=== PATIENT | male | born 1990 | race Caucasian/White ===

== ENCOUNTER 2021-11-01 05:36 | Emergency (ER) | payer SELFPAY ==
[2021-11-01 05:47] VITALS: BP 123/69; PULSE 86; RESP 18; TEMP 36.7; O2SAT 95; BMI 23.3
[2021-11-01 06:22] LABS: Add Urine Microscopic? NO; Charge for UA Resulting for Rev
[2021-11-01 06:24] LABS: Basophils % 0.2 %; Eosinophils # 0.2 10^3/uL (0.0-0.8); Eosinophils % 1.7 %; Hematocrit 47.4 % (42.0-52.0); Hemoglobin 15.5 g/dL (11.7-16.6); Lymphocytes # 1.9 10^3/uL (0.8-4.8); Lymphocytes % 20.9 %; Mean Corpuscular HGB Conc 32.7 g/dL (30.0-36.0); Mean Corpuscular Hemoglobin 29.9 pg (28.0-34.0); Mean Corpuscular Volume 91.5 fl (80-94); Mean Platelet Volume 10.3 fL (7.4-10.4); Monocytes # 1.2 10^3/uL (0.2-0.9); Monocytes % 13.1 %; Neutrophils # 5.85 10^3/uL (1.8-7.7); Neutrophils % 63.9 %; Nucleated Red Blood Cells % 0 %; Platelet Count 156 10^3/cmm (130-400); Red Blood Count 5.18 10^6/uL (4.1-5.3); Red Cell Distribution Width 12.9 % (12.1-15.1); White Blood Count 9.2 10^3/uL (4.0-10.0)
--- NOTE | 2021-11-01 06:26 | W.ED.WEAKNES ---
HPI - Weakness General: Chief complaint: Weakness Stated complaint: feels weak Time Seen by Provider: 11/01/21 05:54 Source: patient Mode of arrival: ambulatory Limitations: no limitations History of Present Illness: 31-year-old male who presents to the emergency room with complaint of generalized weakness. He works outside and has been sleeping in his car. He denies any abdominal or chest pain denies any shortness of breath he does have a little bit of dysuria. No vomiting or diarrhea no other focal symptoms other than being very tired and feeling weak. MD Complaint: generalized weakness Onset (ago): day(s) Duration: constant Location: generalized Migration: none Severity: mild Relieving factors: none Exacerbating factors: none Associated symptoms: Denies chest pain, chills, confusion, melena, decreased appetite, diaphoresis, dysuria, easy bruising, fever(s), headache(s), myalgias, nausea, rash, short of breath, syncope or vomiting Review of Systems Const: Reports: fatigue and malaise; Denies: fever(s), chills, body aches, change in appetite or diaphoresis ENMT: Denies: throat pain, ear or mastoid pain, nasal discharge or nasal congestion Card: Denies: chest pain or syncope Resp: Denies: dyspnea, productive cough or non-productive cough GI: Denies: nausea, vomiting or melena : Denies: flank pain, difficulty urinating, dysuria, urinary frequency or urinary urgency Skin/Breast: Denies: rash or pruritus Neuro: Denies: headache(s) or confusion Jacob/Lymph: Denies: easy bruising PFSH ED PFSH: Medical History (Updated 11/01/21 @ 06:47 by Jb Calloway DO) No pertinent past medical history Surgical History (Updated 11/01/21 @ 06:41 by Jb Calloway DO) No pertinent past surgical history Social History (Updated 11/01/21 @ 06:41 by Jb Calloway DO) Smoking and tobacco status: current every day smoker Alcohol intake: current Physical Exam Const: COMMON NORMALS: no acute distress GENERAL APPEARANCE: cooperative and comfortable ORIENTATION/CONSCIOUSNESS: Yes awake, Yes oriented to person, Yes oriented to place and Yes oriented to time HENMT: COMMON NORMALS: normocephalic and atraumatic HEAD & SCALP: normocephalic and atraumatic Eye: COMMON NORMALS: Equal, round and reactive pupils present, EOMs intact bilaterally, conjunctivae normal and no scleral icterus CONJUNCTIVA: Yes conjunctivae normal PUPIL: Yes Equal, round and reactive pupils present Neck/C-Spine: COMMON NORMALS: full ROM, no lymphadenopathy, supple and no JVD Resp: COMMON NORMALS: normal respiratory effort, No retractions, No use of accessory muscles and clear to auscultation bilaterally AUSCULTATION: clear to auscultation bilaterally Cardio: COMMON NORMALS: no JVD, regular rate, regular rhythm and No murmurs present (Cardio) RATE: regular rate RHYTHM: regular rhythm GI: COMMON NORMALS: Soft to palpation and No hepatosplenomegaly present AUSCULTATION: Yes normoactive bowel sounds PALPATION: Yes Soft to palpation, No Tenderness to palpation present (GI), No Guarding due to palpation present (GI) and Yes No hepatosplenomegaly present : COMMON NORMALS: Yes no CVA tenderness BLADDER/KIDNEY EXAM: Yes no CVA tenderness Back/Pelvis: COMMON NORMALS: no CVA tenderness Extremity: COMMON NORMALS: normal to inspection, capillary refill normal, no clubbing, cyanosis or edema, no calf tenderness and no pedal edema Neuro: SENSORIUM/ORIENTATION: Yes oriented to person, Yes oriented to place and Yes oriented to time Skin: COMMON NORMALS: no rashes or lesions noted GENERAL SKIN EXAM: no rashes or lesions noted Course Vital Signs: Vital signs: Vital Signs Temperature 98.1 F 11/01/21 05:47 Pulse Rate 86 11/01/21 05:47 Respiratory Rate 16 11/01/21 06:54 Blood Pressure 123/69 11/01/21 05:47 Pulse Oximetry 95 11/01/21 05:47 MDM - Weakness Medical Decision Making Reviewed labs and vital signs. No acute findings on laboratory studies vital signs are stable at this point beyond fatigue patient does not have any specific complaints no acute medical problem. I think a lot of his symptoms are due to the fact that he is working in the heat and in living out of his vehicle. He is not likely to be getting adequate sleep fluid intake and nutrition are also likely less than optimal. Discussed with the patient. While he does have many things that are probably contributing to his fatigue there is not anything medically that we can do most of these are social economic issues he acknowledges this. Discharge home. Lab Data I reviewed the patient's lab results. : 11/01/21 06:20 11/01/21 06:20 Laboratory Results WBC 9.2 10^3/uL (4.0-10.0) 11/01/21 06:20 RBC 5.18 10^6/uL (4.1-5.3) 11/01/21 06:20 Hgb 15.5 g/dL (11.7-16.6) 11/01/21 06:20 Hct 47.4 % (42.0-52.0) 11/01/21 06:20 MCV 91.5 fl (80-94) 11/01/21 06:20 MCH 29.9 pg (28.0-34.0) 11/01/21 06:20 MCHC 32.7 g/dL (30.0-36.0) 11/01/21 06:20 RDW 12.9 % (12.1-15.1) 11/01/21 06:20 Plt Count 156 10^3/cmm (130-400) 11/01/21 06:20 MPV 10.3 fL (7.4-10.4) 11/01/21 06:20 Neut % (Auto) 63.9 % 11/01/21 06:20 Lymph % (Auto) 20.9 % 11/01/21 06:20 [place] % (Auto) 13.1 % 11/01/21 06:20 Eos % (Auto) 1.7 % 11/01/21 06:20 Baso % (Auto) 0.2 % 11/01/21 06:20 Neut # (Auto) 5.85 10^3/uL (1.8-7.7) 11/01/21 06:20 Lymph # (Auto) 1.9 10^3/uL (0.8-4.8) 11/01/21 06:20 [place] # (Auto) 1.2 10^3/uL (0.2-0.9) H 11/01/21 06:20 Eos # (Auto) 0.2 10^3/uL (0.0-0.8) 11/01/21 06:20 Baso # (Auto) 0.0 10^3/uL (0.0-0.1) 11/01/21 06:20 Nucleated RBC % (auto) 0 % 11/01/21 06:20 Nucleated RBCs # 0.0 /100WBC 11/01/21 06:20 Sodium 140 mmol/L (136-145) 11/01/21 06:20 Potassium 4.0 mmol/L (3.5-5.1) 11/01/21 06:20 Chloride 105 mmol/L (98-107) 11/01/21 06:20 Carbon Dioxide 26 mmol/L (22-29) 11/01/21 06:20 Anion Gap 13.0 (5-19) 11/01/21 06:20 BUN 11 mg/dL (6-20) 11/01/21 06:20 Creatinine 0.8 mg/dL (0.7-1.2) 11/01/21 06:20 GFR Calculation 112.8 mL/min (90-130) 11/01/21 06:20 Glucose 95 mg/dL (65-115) 11/01/21 06:20 Calculated Osmolality 289 mOsm/kg (285-295) 11/01/21 06:20 Calcium 9.2 mg/dL (8.5-10.5) 11/01/21 06:20 Total Bilirubin 0.2 mg/dL (0.15-1.2) 11/01/21 06:20 AST 12 U/L (0-40) 11/01/21 06:20 ALT 15 U/L (0-41) 11/01/21 06:20 Alkaline Phosphatase 69 IU/L (40-130) 11/01/21 06:20 Total Protein 6.7 g/dL (6.6-8.7) 11/01/21 06:20 Albumin 4.1 g/dL (3.5-5.2) 11/01/21 06:20 Globulin 2.6 g/dL (1.3-4.6) 11/01/21 06:20 Urine Color Yellow (Yellow) 11/01/21 06:10 Urine Appearance Clear (CLEAR) 11/01/21 06:10 Urine pH 6.5 (5-7) 11/01/21 06:10 Ur Specific [place] 1.020 (1.005-1.030) 11/01/21 06:10 Urine Protein Neg (Negative) 11/01/21 06:10 Urine Glucose (UA) Norm (Normal) 11/01/21 06:10 Urine Ketones Negative (Negative) 11/01/21 06:10 Urine Blood Neg (Negative) 11/01/21 06:10 Urine Nitrate Negative (Negative) 11/01/21 06:10 Urine Bilirubin Neg (Negative) 11/01/21 06:10 Urine Urobilinogen 4 mg/dL (Negative) H 11/01/21 06:10 Ur Leukocyte Esterase Negative (Negative) 11/01/21 06:10 Discharge Plan Discharge Patient Disposition: Home Clinical Impression: Fatigue Condition: Stable Discharge Orders: Discharge ED (Routine); Ordered 11/01/21 Ordered By: Jb Calloway Referrals: Luis Eduardo Davenport, PARAPROFESSIONAL AIDE TEACHER-C [Primary Care Provider] - Patient Instructions: Opioid Safety Activity Restrictions/Additional Instructions: Follow-up with your primary care doctor. Stand Alone Forms: Work/School Release Coding Level of Care Code ED Jailer/Training Officer for Amy Fwd Exam Comprehensive
[2021-11-01 06:29] LABS: Bilirubin Urine Neg (Negative); Blood Urine Neg (Negative); Glucose Urine UA Norm (Normal); Ketones Urine Negative (Negative); Leukocyte Esterase Urine Negative (Negative); Nitrate Urine Negative (Negative); Protein Urine Neg (Negative); Urine Appearance Clear (CLEAR); Urine Color Yellow (Yellow); Urobilinogen Urine 4 mg/dL (Negative); pH Urine 6.5 (5-7)
[2021-11-01 06:42] LABS: Alanine Aminotransferase 15 U/L (0-41); Albumin Level 4.1 g/dL (3.5-5.2); Alkaline Phosphatase 69 IU/L (40-130); Aspartate Amino Transferase 12 U/L (0-40); Blood Urea Nitrogen 11 mg/dL (6-20); Calcium 9.2 mg/dL (8.5-10.5); Carbon Dioxide 26 mmol/L (22-29); Chloride 105 mmol/L (98-107); Globulin 2.6 g/dL (1.3-4.6); Glomerular Filtration Rate 112.8 mL/min (90-130); Glucose 95 mg/dL (65-115); Osmolality Calculated 289 mOsm/kg (285-295); Sodium 140 mmol/L (136-145); Total Bilirubin 0.2 mg/dL (0.15-1.2); Total Protein 6.7 g/dL (6.6-8.7)
[2021-11-01 06:54] VITALS: RESP 16
== END 2021-11-01 06:55 | disposition home or self-care (01) ==
PROVIDERS: Emergency Provider Family Medicine; PCP Nurse Practitioner
DX: R53.83 Other fatigue (principal)
CPT/HCPCS: 80053; 81003; 85025; 99282

== ENCOUNTER 2021-11-12 18:15 | Emergency (ER) | payer SELFPAY ==
--- NOTE | 2021-11-12 18:23 | ECG_ITS ---
[facility] Test Date: 2021-11-12 Pat Name: Jay Patterson Department: Room: Gender: Male Cellular Biologist: : 1990 Requested By: Yovany Benson Order Number: [id number] Nathan MD: Alaina Evans M.D. Measurements Intervals [place] Rate: 77 P: 13 [place]: 128 QRS: 80 QRSD: 96 T: 43 QT: 335 QTc: 380 Interpretive Statements SINUS RHYTHM No previous ECG available for comparison Electronically Signed On 11-13-2021 22:02:20 CDT by Alaina Evans M.D. [id number]
[2021-11-12 19:08] VITALS: BP 105/67; PULSE 80; RESP 16; TEMP 36.7; O2SAT 98; BMI 23.0
--- NOTE | 2021-11-12 19:16 | ED_ITS ---
HPI - General Adult General: Chief complaint: Syncope Stated complaint: Passed Out Tired Time Seen by Provider: 11/12/21 19:15 History of Present Illness: HPI: [31]yo patient w/ hx of smoking, homelessness (living in his car) presenting to the ED an episode of syncope occurred at 530 this evening. Patient was in his car turned off when this happened. Patient is no hitting his head. Patient has never had syncope prior. No family history of syncope or sudden cardiac . Denies any chest pain, shortness of breath, palpitation prior to the episode of syncope. Patient told he has not been eating today. Patient tells me he is really stressed out because he is currently homeless and obtain custody of his children. Patient could not recall the incident but denies any post-ictal confusion, tongue biting or bladder/bowel incontinence. Patient denies any prior hx of syncope in the past. No associated symptoms of chest pain, shortness of breath, palpitations or focal weakness right before the incident. No family hx of sudden cardiac or unexplained . Onset: 5:30pm Duration: ongoing Location: streets/car Severity: moderate Associated symptoms: Deny chest pain, dyspnea, nausea, rash, palpitations or vomiting Review of Systems Const: Denies: fever(s) or chills Eyes: Denies: change in vision ENMT: Denies: mouth pain Card: Denies: chest pain or palpitations Resp: Denies: dyspnea or non-productive cough GI: Denies: abdominal pain, nausea, vomiting or diarrhea : Denies: dysuria Musc: Denies: extremity pain Skin/Breast: Denies: rash or new lesions Neuro: Reports: other (+syncope); Denies: weakness in extremities Psych: Reports: other (Normal mood) Jacob/Lymph: Denies: easy bruising PFS ED PFSH: Medical History No pertinent past medical history Surgical History No pertinent past surgical history Social History (Updated 11/12/21 @ 20:10 by Desiree Andre MD) Smoking and tobacco status: current every day smoker Alcohol intake: current Substance/Drug Use: never Physical Exam Const: COMMON NORMALS: alert HENMT: COMMON NORMALS: atraumatic HEAD & SCALP: atraumatic MOUTH: moist mucous membranes not abnormal Eye: COMMON NORMALS: EOMs intact bilaterally and conjunctivae normal CONJUNCTIVA: Yes conjunctivae normal Neck/C-Spine: COMMON NORMALS: full ROM and supple Resp: COMMON NORMALS: normal respiratory effort and clear to auscultation bilaterally AUSCULTATION: clear to auscultation bilaterally Cardio: COMMON NORMALS: regular rate RATE: regular rate GI: COMMON NORMALS: Soft to palpation and non-tender PALPATION: Yes Soft to palpation Extremity: COMMON NORMALS: full ROM Neuro: SENSORIUM/ORIENTATION: Yes alert MOTOR EXAM: No Abnormal motor strength present and Other motor observations present (no focal motor deficits) OTHER: Mental status? Awake, alert, and oriented to self, year, month, location, and situation.? Following simple axial and appendicular commands.? Has appropriate fund of knowledge, comprehension, and insight.? Able to recall and understands pertinent aspects of medical history and current treatment status.? ? Language? Speech is fluent without word-finding difficulties.? Intact naming, expression, spa receptionist, and repetition.? ? Cranial nerves? 2,3,4,6: PERRL, EOMI with no nystagmus. 5: Intact sensation to light touch, symmetric? 7: Smile symmetrical, no facial droop.? 8: Hearing grossly intact.? 9,10: Normal palate movement.? 11: Normal strength in trapezius bilaterally 12: Tongue protrudes midline.? ? Motor examination? Normal bulk & tone. Strength as follows (R/L): Delts (5/5), Biceps (5/5), Triceps (5/5), Wrist ext (5/5), hip flexors (5/5), plantarflexors (5/5), dorsiflexors (5/5). ? Gait/stance? Steady, normal narrow base gait with appropriate arm swing and turning.? Tandem gait without hesitation or loss of balance. Psych: COMMON NORMALS: speech normal SPEECH: Yes normal speech MOOD & AFFECT: Yes euthymic mood Course Vital Signs: Vital signs: Vital Signs Temperature 98.0 F 11/12/21 19:08 Pulse Rate 70 11/12/21 21:29 Respiratory Rate 15 11/12/21 21:29 Blood Pressure 106/60 11/12/21 21:29 Pulse Oximetry 97 11/12/21 21:29 MDM - General Adult Medical Decision Making [31]yo patient w/ hx of smoking presenting to the ED with Syncope. No association with chest pain, dyspnea, palpitations, or focal neurological deficits. HDS Neuro intact. Fingerstick wnl. Given history, exam and workup, presentation not consistent with seizures given a short time course, no posticta l state, no seizure activity. Low suspicion for acute neurologic catastrophes to include ICH given lack of trauma, risk factors for bleeding diathesis, or neurogenic causes of syncope. Low suspicion for vascular catastrophes to include PE, thoracic aortic dissection, AAA rupture. Presentation not consistent with acute life threatening arrhythmia, structural heart disease, electrical conduction abnormalities, or ACS. Workup: EKG, fingerstick, orthostatics, and if female, telemetry, sha ssessment, and PO challenge Intervention: Serial reevaluation, telemetry, PO challenge Findings: EKG: No e/o STEMI. No evidence of Brugada?s sign, delta wave, epsilon wave, significantly prolonged QTc, HOCM or malignant arrhythmia. SF Syncope Rule: 0 [place] Syncope Risk Score: 0 [9:00pm] On reassessment, patient denies any syncope or near syncope episodes in the ER. Telemetry without any dysrhythmia. Patient has been able to tolerate PO and ambulate in the ER without issues. Given age, limited to no comorbidities, no family hx of SCD, history more consistent with situational/reflex syncope vs orthostatic/decreased fluid intake, patient is unlikely to experience sudden cardiac decompensation at this time and will NOT benefit from inpatient observation/telemetry at this time. Although the incidence of paroxysmal ventricular tachycardia/VF is very unlikely, I instructed the patient to follow up with a PCP and a Commissary Officer for further evaluation of syncope should the patient need it. Disposition: Discharge. Patient is at baseline at this time. Return precautions expressed and understood in person. Advised follow up with a primary care provider or clinic physician in the next 24-48 hours. Given return instructions for any new or concerning symptoms including chest pain, focal neurological deficits, dyspnea, or any new or concerning findings. Lab Data : 11/12/21 19:30 11/12/21 19:30 Laboratory Results WBC 8.8 10^3/uL (4.0-10.0) 11/12/21 19:30 RBC 5.41 10^6/uL (4.1-5.3) H 11/12/21: Hgb 16.3 g/dL (11.7-16.6) 11/12/21: Hct 49.6 % (42.0-52.0) 11/12/21: MCV 91.7 fl (80-94) 11/12/21: MCH 30.1 pg (28.0-34.0) 11/12/21: MCHC 32.9 g/dL (30.0-36.0) 11/12/21: RDW 12.9 % (12.1-15.1) 11/12/21: Plt Count 247 10^3/cmm (130-400) 11/12/21: MPV 10.0 fL (7.4-10.4) 11/12/21: Neut % (Auto) 66.2 % 11/12/21: Lymph % (Auto) 25.5 % 11/12/21: [place] % (Auto) 6.2 % 11/12/21: Eos % (Auto) 1.5 % 11/12/21: Baso % (Auto) 0.3 % 11/12/21 Neut # (Auto) 5.80 10^3/uL (1.8-7.7) 11/12/21: Lymph # (Auto) 2.2 10^3/uL (0.8-4.8) 11/12/21: [place] # (Auto) 0.5 10^3/uL (0.2-0.9) 11/12/21: Eos # (Auto) 0.1 10^3/uL (0.0-0.8) 11/12/21: Baso # (Auto) 0.0 10^3/uL (0.0-0.1) 11/12/21: Nucleated RBC % (auto) 0 % 11/12/21: Nucleated RBCs # 0.0 /100WBC 11/12/21: Sodium 141 mmol/L (136-145) 11/12/21:30 Potassium 3.8 mmol/L (3.5-5.1) 11/12/21 19:30 Chloride 102 mmol/L (98-107) 11/12/21 19:30 Carbon Dioxide 29 mmol/L (22-29) 11/12/21 19:30 Anion Gap 13.8 (5-19) 11/12/21 19:30 BUN 12 mg/dL (6-20) 11/12/21 19:30 Creatinine 0.9 mg/dL (0.7-1.2) 11/12/21 19:30 GFR Calculation 98.4 mL/min (90-130) 11/12/21 19:30 Glucose 93 mg/dL (65-115) 11/12/21 19:30 Calculated Osmolality 291 mOsm/kg (285-295) 11/12/21 19:30 Calcium 9.1 mg/dL (8.5-10.5) 11/12/21 19:30 Total Bilirubin 0.3 mg/dL (0.15-1.2) 11/12/21 19:30 AST 10 U/L (0-40) 11/12/21 19:30 ALT 9 U/L (0-41) 11/12/21 19:30 Alkaline Phosphatase 70 IU/L (40-130) 11/12/21 19:30 Total Protein 7.3 g/dL (6.6-8.7) 11/12/21 19:30 Albumin 4.6 g/dL (3.5-5.2) 11/12/21 19:30 Globulin 2.7 g/dL (1.3-4.6) 11/12/21 19:30 Discharge Plan Discharge Patient Disposition: Home Clinical Impression: Syncope Condition: Stable Prescriptions: No Action No Known Home Medications 0RF Discharge Orders: Discharge ED (Routine); Ordered 11/12/21 Ordered By: Desiree Andre Referrals: Luis Eduardo Davenport, RETAIL MANAGER-C [Primary Care Provider] - Discharge Diet: Advance as tolerated Discharge Activity: Increase activity as tolerated Patient Instructions: Syncope (ED) Activity Restrictions/Additional Instructions: Please come back to the emergency room for any more breakthrough episodes of passing out. Come back if any weakness in her arms, drooling, difficulty speaking, any neurological symptoms, chest pain/shortness of breath/palpitation or any new or concerning issues. Please do not swim, bathe, operate heavy machinery or drive a vehicle unattended. Stand Alone Forms: Work/School Release Coding Level of Care Code ED [employer] Sales Representative for Amy Fwd Exam Comprehensive
[2021-11-12 19:41] VITALS: BP 110/72; PULSE 88; RESP 17; O2SAT 99
[2021-11-12 19:49] LABS: Basophils % 0.3 %; Eosinophils # 0.1 10^3/uL (0.0-0.8); Eosinophils % 1.5 %; Hematocrit 49.6 % (42.0-52.0); Hemoglobin 16.3 g/dL (11.7-16.6); Lymphocytes # 2.2 10^3/uL (0.8-4.8); Lymphocytes % 25.5 %; Mean Corpuscular HGB Conc 32.9 g/dL (30.0-36.0); Mean Corpuscular Hemoglobin 30.1 pg (28.0-34.0); Mean Corpuscular Volume 91.7 fl (80-94); Monocytes # 0.5 10^3/uL (0.2-0.9); Monocytes % 6.2 %; Neutrophils % 66.2 %; Nucleated Red Blood Cells % 0 %; Platelet Count 247 10^3/cmm (130-400); Red Blood Count 5.41 10^6/uL (4.1-5.3); Red Cell Distribution Width 12.9 % (12.1-15.1); White Blood Count 8.8 10^3/uL (4.0-10.0)
[2021-11-12 20:00] VITALS: BP 102/62; PULSE 69
[2021-11-12 20:03] LABS: Alanine Aminotransferase 9 U/L (0-41); Albumin Level 4.6 g/dL (3.5-5.2); Alkaline Phosphatase 70 IU/L (40-130); Anion Gap 13.8 (5-19); Aspartate Amino Transferase 10 U/L (0-40); Blood Urea Nitrogen 12 mg/dL (6-20); Calcium 9.1 mg/dL (8.5-10.5); Carbon Dioxide 29 mmol/L (22-29); Chloride 102 mmol/L (98-107); Creatinine Clr Calc Pharmacy 126.3545; Globulin 2.7 g/dL (1.3-4.6); Glomerular Filtration Rate 98.4 mL/min (90-130); Glucose 93 mg/dL (65-115); Osmolality Calculated 291 mOsm/kg (285-295); Potassium 3.8 mmol/L (3.5-5.1); Sodium 141 mmol/L (136-145); Total Bilirubin 0.3 mg/dL (0.15-1.2); Total Protein 7.3 g/dL (6.6-8.7)
[2021-11-12 20:05] VITALS: BP 112/69; PULSE 82
[2021-11-12 20:10] VITALS: BP 111/73; PULSE 88
[2021-11-12] MEDS: sodium chloride 0.9% 1,000 ML 999 ML IV (20:26)
[2021-11-12 21:29] VITALS: BP 106/60; PULSE 70; RESP 15; O2SAT 97
== END 2021-11-12 21:30 | disposition home or self-care (01) ==
PROVIDERS: Emergency Medicine; Emergency Provider Emergency Medicine; PCP Nurse Practitioner
DX: R55 Syncope and collapse (principal)
CPT/HCPCS: 80053; 85025; 93005; 96360; 99284; J7030

== ENCOUNTER → 2022-01-30 15:01 | Outpatient (BNVA) | payer SELFPAY | PROVIDERS: PCP Nurse Practitioner; Visit Provider Registered Nurse Neonatal Intensive Care | DX: J02.0 Streptococcal pharyngitis (principal) | CPT/HCPCS: 87880 ==